=== PATIENT | male | born 1945 | race Caucasian/White ===

== ENCOUNTER 2019-04-22 11:07 | Outpatient (RCR) | payer OTHER ==
--- NOTE | 2019-04-14 13:52 | CARECAPL ---
Assessment Account #s: Initial Assessment General Diagnoses: Stent, AVR Date of event: Feb 19, 2019 Allergies: Coded Allergies: Penicillins (Verified Allergy, Unknown, 04/14/19) lisinopril (Verified Allergy, Unknown, 04/14/19) procaine (Verified Allergy, Unknown, 04/14/19) Risk strat for cardiac event: High Exercise Assessment: Initial Assessment Stages of change: Pre-contemplation Exercise Prescription Plan Educate on cardiovascular disease and increase endurance, strength and flexibility through a monitored exercise program. Modalities initiated: Nustep (will add resistance of one for 8 minutes), Arm Aerometer (will add resistance of 1 for 5 minutes), Dumbells (will add 1lb 1 set for 6-8 reps), Recumbent Bike (will add resistance of 1 for 5 minutes) Frequency: 3 Duration (Minutes) 30 - 60 minutes total exercise a day. 15 - 20 work intervals in minutes. PRN rest intervals in minutes. Functional Capacity Goal Sustained Metabolic Equivalent of a task (MET) goal of 2.0-3.0 for 15-20 minutes. Intensity: 3-Moderate Progression (METS) Increase by: 0.5 METS every: 3-5 sessions Angina with ex: No Target Heart Rate Rest +35-40 per beta brianne therapy. Resistance Training: Yes Weight (pounds): 1 Reps: 6-8 Medications Scheduled Allopurinol (Allopurinol), 1 TAB PO DAILY, (Reported) Amiodarone HCl (Amiodarone HCl), 1 TAB PO DAILY, (Reported) Amlodipine Besylate (Amlodipine Besylate), 10 MG PO DAILY, (Reported) Ascorbic Acid (Vitamin C), 1 CAP PO DAILY, (Reported) Cholecalciferol (Vitamin D3) (Vitamin D3), 1,000 UNIT PO DAILY, (Reported) Clopidogrel Bisulfate (Plavix), 75 MG PO DAILY, (Reported) Escitalopram Oxalate (Escitalopram Oxalate), 10 MG PO DAILY, (Reported) Famotidine (Pepcid), 40 MG PO DAILY, (Reported) Folic Acid (Folic Acid), 1 TAB PO DAILY, (Reported) Gabapentin (Neurontin), 100 MG PO BID, (Reported) Glucosam/Vernon-Msm1/C/Ramon/Bosw (Osteo Bi-Flex Caplet), 1 TAB PO DAILY, (Reported) Metformin HCl (Metformin HCl), 500 MG PO DAILY, (Reported) Metoprolol Succinate (Metoprolol Succinate), 50 MG PO BID, (Reported) Multivitamin (Multi-Vitamin Daily), 1 TAB PO DAILY, (Reported) Potassium Chloride (Potassium Chloride), 8 MEQ PO BID, (Reported) Trazodone HCl (Trazodone HCl), 50 MG PO QPM, (Reported) Warfarin Sodium (Coumadin), 3 MG PO DAILY, (Reported) Miscellaneous Medications Famotidine (Pepcid), 40 MG PO, (Reported) Intervention Education: BP medication Education Goals Met: No Target Goals Individual exercise Rx (1) BP 140/90 or 130/80 if DM or CKD (1) Aerobic active 30+min 5 days per week (1) Nutrition Date: Apr 14, 2019 Assessment: Initial Assessment Stages of change: Pre-contemplation Lipids Total Cholesterol (111), High Density Lipids (HDL) (49), Low Density Lipids (LDL) (46), Triglycerides (79) Lipid- med/supplement None Diabetes Diabetes: Yes HbA1c (%): 5.6 Diabetes medication Metformin Monitor Blood Sugar at home: Yes Frequency Twice a day Weight Management Weight (lbs): 233.2 Height (inches): 66 Waist Circumference (Inches): 51 BMI: 37.6 Special Diet: low salt, low-fat Alcohol: none Diet Access Tool: Rate your plate Score: 40 Referral to Diabetes education: No (will discuss with patient about [facility] programs.) Referral to lipid clinic: No Referral to weight mangement p: No (will discuss with patient about [facility] programs.) Education Goals Met: No Target goal LDL-C<100 if triglycerides are >200 Non-HDL-C should be <130 (1) LDL-C<70 for high risk patients (4) HbA1c<7% (1) BMI<25 Waist cir<40in M/<35in F (1) Education Date: Apr 14, 2019 Assessment: Initial Assessment Knowledge Test Score: 5 Stages of change: Pre-contemplation Family Support: Yes Tobacco use: No Quit: never smoked Education Goals Met: No Target Goals Complete cessation of tobacco use (1). Psychosocial Date: Apr 14, 2019 Assessment: Initial Assessment Psych Test (Initial/Discharge) Tool Used: Other (pHQ-9) Score: 6 Stages of change: Pre-contemplation Intervention Physician Consult: No Physician Referral: No ([facility] Psychotropic medication lexapro and trazodone. Education Goals Met: No Target Goal Assess presence or absence of depression using a valid screening tool (1). Maximize coping skills (2). Positive support system (2). Patient/Program Goal Preventative Medication: Yes Clopidogrel, Yes Beta blockade, Yes Statin/OTR lipid Lowering, Yes Other (amiodarone and Norvasc.) Fall Risk Assess: Yes (patient was not a fall risk but does have issues with loss of balance.) Provider Assessment Provider Assessment: Proceed with rehab Scarlett Stein RN Apr 14, 2019 13:52
[~2019-04-22 11:07] MED LIST: ALLO100T PO; AMIO200T PO; AMLO10TA5 PO; COUM1TAB19 PO; ESCI5SOL3 PO; FOLI1TAB11 PO; METF500T13 PO; METO1TAB7 PO; MULT1TAB8 PO; NEUR100C PO; OSTETAB2 PO; PEPC40TA12 PO; PLAV1TAB2 PO; POTA8CAP10 PO; TRAZ-252 PO; VITA100054 PO; VITA500C24 PO
== END 2019-04-23 ==
LOC: M CR 11:07
PROVIDERS: ATTEND Internal Medicine Cardiovascular Disease
DX: Z95.5 Presence of coronary angioplasty implant and graft (principal)

== ENCOUNTER 2019-05-19 09:36 | Outpatient (RCR) | payer OTHER ==
[2019-05-05 07:35] VITALS: BP 124/80
[2019-05-05 08:10] VITALS: BP 180/110
[2019-05-05 08:53] VITALS: BP 118/80
[2019-05-07 09:03] VITALS: BP 140/86
[2019-05-07 09:08] VITALS: BP_SYST 124; BP_SYST 160; BP_DIAS 82; BP_DIAS 90
[2019-05-10 07:40] VITALS: BP 150/80
[2019-05-10 08:20] VITALS: BP 150/80
[2019-05-10 09:03] VITALS: BP 118/72
--- NOTE | 2019-05-10 14:00 | CARECAPL ---
Assessment Account #s: Re-Assessment I General Diagnoses: Stent, AVR Date of event: Feb 19, 2019 Allergies: Coded Allergies: Penicillins (Verified Allergy, Unknown, 04/14/19) lisinopril (Verified Allergy, Unknown, 04/14/19) procaine (Verified Allergy, Unknown, 04/14/19) Date Entered Program: Apr 16, 2019 Risk strat for cardiac event: High Exercise Assessment: Re-Assessment I Stages of change: Contemplate Exercise Prescription Plan TO EDUCATE AND BUILD ENDURANCE THROUGH MONITORED EXERCISE PROGRAM Modalities initiated: Nustep (METS=7.0/RPE=4), Arm Aerometer (METS=3.5/RPE=3.5), Dumbells (5#/RPE=4), Recumbent Bike (METS=5.3/RPE=4) Frequency: 3 Duration (Minutes) 30 - 60 minutes total exercise a day. 15 - 20 work intervals in minutes. PRN rest intervals in minutes. Functional Capacity Goal Sustained Metabolic Equivalent of a task (MET) goal of 4.75-5.50 for 15-20 minutes. Intensity: 3-Moderate Progression (METS) Increase by: 0.5 METS every: 5 sessions TOLERATED Angina with ex: No Target Heart Rate REST + 35-40 BASED ON BETA BHANU THERAPY Resistance Training: Yes Weight (pounds): 5 Reps: 8-12 Hypertension: Yes Hypertension controlled with: Medication (NORVASC,METOPROLOL) Resting 150/80 Peak Exercise BP 150/80 Medications Scheduled Allopurinol (Allopurinol), 1 TAB PO DAILY, (Reported) Amiodarone HCl (Amiodarone HCl), 1 TAB PO DAILY, (Reported) Amlodipine Besylate (Amlodipine Besylate), 10 MG PO DAILY, (Reported) Ascorbic Acid (Vitamin C), 1 CAP PO DAILY, (Reported) Cholecalciferol (Vitamin D3) (Vitamin D3), 1,000 UNIT PO DAILY, (Reported) Clopidogrel Bisulfate (Plavix), 75 MG PO DAILY, (Reported) Escitalopram Oxalate (Escitalopram Oxalate), 10 MG PO DAILY, (Reported) Famotidine (Pepcid), 40 MG PO DAILY, (Reported) Folic Acid (Folic Acid), 1 TAB PO DAILY, (Reported) Gabapentin (Neurontin), 100 MG PO BID, (Reported) Glucosam/Vernon-Msm1/C/Ramon/Bosw (Osteo Bi-Flex Caplet), 1 TAB PO DAILY, (Reported) Metformin HCl (Metformin HCl), 500 MG PO DAILY, (Reported) Metoprolol Succinate (Metoprolol Succinate), 50 MG PO BID, (Reported) Multivitamin (Multi-Vitamin Daily), 1 TAB PO DAILY, (Reported) Potassium Chloride (Potassium Chloride), 8 MEQ PO BID, (Reported) Trazodone HCl (Trazodone HCl), 50 MG PO QPM, (Reported) Warfarin Sodium (Coumadin), 3 MG PO DAILY, (Reported) Miscellaneous Medications Famotidine (Pepcid), 40 MG PO, (Reported) Current BP 118/72 Med Change: No Intervention Home exercise: Type (WALKING, HAND WEIGHTS, HOME EXERCISE EQUIPMENT, JOIN LOCAL GYM OR MEET PROGRAM AT CARDIAC REHAB), Frequency (3-5 DAYS PER WEEK), Duration (30-60 MINUTES) Resistance Training: Yes Education: Self pulse (INSTRUCTED PATIENT TO TAKE HIS OWN PULSE, REINFORCEMENT WILL BE PROVIDED THROUGHOUT PROGRAM), Ex safety (PATIENT VERBALIZES UNDERSTANDING OF IMPORTANCE OF WARM UP/COOL DOWN, STAYING HYDRATED, COMFORTABLE SHOES AND CLOTHING DURING EXERCISE), S/S to report (PATIENT VERBALIZES UNDERSTANDING TO REPORT CHEST PAIN/PRESSURE, SOB, N/V DURING EXERCISE), Low NA diet (PATIENT VERBALIZES THAT HE IS TO AVOID SALT IN HIS DIET DUE TO HIS CARDIAC DISEASE), BP medication (REVIEWED USES/ACTION OF AMLODIPINE, AND METOPROLOL), RPE Scale (REVIEWED RPE SCALE OF DIFFICULTY FOR EACH PIECE OF EQUIPMENT USED), Equipment orientation (ORIENTED TO EACH PIECE OF EQUIPMENT), warm up/cool down (INSTRUCTED WARM UP AND COOL DOWN PRIOR TO AND FOLLOWING EXERCISE), Understand BP (REVIEWED IDEAL B/P OF 130/80 WITH PATIENT ), Physical Active (PATIENT STATES UNDERSTANDING OF IMPORTANCE OF CONTINUED EXERCISE FOLLOWING CARDIAC REHAB PROGRAM) Education Goals Met: No (PROGRESSING TOWARD GOALS) Target Goals Individual exercise Rx (1) BP 140/90 or 130/80 if DM or CKD (1) Aerobic active 30+min 5 days per week (1) Nutrition Date: May 10, 2019 Assessment: Re-Assessment I Stages of change: Contemplate Med Change: No Diabetes Diabetes: Yes Monitor Blood Sugar at home: Yes Frequency ACHS Medication Change: No Blood sugar in range: Yes Weight Management Weight (lbs): 230 Special Diet: low salt, low-fat Vitamin/Supplements: Multivitamin, Vitamin C, Vitamin D Current Weight (pounds): 230 Intervention Division Superintendent Consult: No Nurse/patient discussion: Yes Dietary Goals TO MAKE HEART HEALTHY CHOICES, SMALLER PORTIONS Diet Class: Yes (MET WITH CYCLE ANALYST 04/22/19) Referral to Diabetes education: No Referral to lipid clinic: No Referral to weight mangement p: No Education Eating Healthy Education Goals Met: No (PROGRESSING TOWARD GOALS) Target goal LDL-C<100 if triglycerides are >200 Non-HDL-C should be <130 (1) LDL-C<70 for high risk patients (4) HbA1c<7% (1) BMI<25 Waist cir<40in M/<35in F (1) Education Date: May 10, 2019 Assessment: Re-Assessment I Learning Barriers: ready Stages of change: Contemplate Family Support: Yes Tobacco use: No Tobacco Use Smokeless tobacco: No Intervention Referral to smoking cessation: No Individual education and couns: No Tobacco Adjunct: No Education class schedule given: No Attended education classes: No Education: CAD (PATIENT STATES THAT HIGH CHOLESTEROL CLOGS ARTERIES CAUSING CAD), Risk factors (PATIENT IS AWARE THAT BEING OVER WEIGHT, DIABETIC, AND HAVING ELEVATED CHOLESTEROL ARE RISK FACTORS FOR CAD), med compliance (PATIENT VERBALIZES UNDERSTANDING OF THE IMPORTANCE OF COMPLIANCE WITH HIS MEDICATIONS), cardiac A&P (HANDOUTS GIVEN/REVIEWED FOR ANATOMY OF HEART), Angina S/S (REVIEWED S/S OF ANGINA SUCH CHEST PAIN, PRESSURE, SOB, N/V) Education Goals Met: No (PROGRESSING TOWARD GOALS) Target Goals Complete cessation of tobacco use (1). Psychosocial Date: May 10, 2019 Assessment: Re-Assessment I Stages of change: Contemplate Intervention Physician Consult: No Physician Referral: No Med Change: No Stress Management Class: No Uses Stress Management Skills: Yes Education Education: Coping Techniques (REVIEWED TAKING TIME FOR SELF, AND TALKING WITH FRIENDS AND FAMILY), S/S depression (REVIEWED S/S DEPRESSION SUCH WITHDRAWAL, LACK OF APPETITE, LACK OF INTEREST), Relaxation Techniques (DISCUSSED WAYS TO RELAX SUCH EXERCISING, MUSIC, READING) Education Goals Met: No (PROGRESSING TOWARD GOALS) Target Goal Assess presence or absence of depression using a valid screening tool (1). Maximize coping skills (2). Positive support system (2). Patient/Program Goal Preventative Medication: Yes Clopidogrel, Yes Beta blockade, Yes Statin/OTR lipid Lowering Fall Risk Assess: Yes (NOT A FALL RISK) Provider Assessment Session Number: 11 Provider Assessment: Proceed with rehab Samy Kim RN May 10, 2019 14:00
[2019-05-12 07:35] VITALS: BP 142/96
[2019-05-12 08:10] VITALS: BP 152/82
[2019-05-12 09:05] VITALS: BP 132/90
[2019-05-14 07:35] VITALS: BP 148/81
[2019-05-14 08:57] VITALS: BP_SYST 114; BP_SYST 154; BP_DIAS 76; BP_DIAS 80
[2019-05-17 07:40] VITALS: BP 132/70
[2019-05-17 09:41] VITALS: BP_SYST 130; BP_SYST 190; BP_DIAS 100; BP_DIAS 80
[~2019-05-19] VITALS: Ht 167.6 cm; Wt 104.5 kg
[2019-05-19 08:00] VITALS: BP_SYST 118; BP_SYST 152; BP_SYST 200; BP_DIAS 100; BP_DIAS 70; BP_DIAS 80
== END 2019-05-22 ==
LOC: M CR 09:36
PROVIDERS: ATTEND Internal Medicine Cardiovascular Disease
DX: Z95.5 Presence of coronary angioplasty implant and graft (principal)

== ENCOUNTER 2019-05-24 08:45 | Outpatient (RCR) | payer OTHER ==
[~2019-05-24] VITALS: Ht 167.6 cm; Wt 107.7 kg
[2019-05-24 09:08] VITALS: BP 132/80
[2019-05-24 09:47] VITALS: BP 166/90
[2019-05-24 09:48] VITALS: BP 148/82
[2019-05-26] MEDS ORDERED: PROTPAK PO (07:29)
[2019-05-26 07:35] VITALS: BP 124/82
[2019-05-26 08:30] VITALS: BP 176/84
[2019-05-26 09:13] VITALS: BP 118/80
[2019-05-28 07:36] VITALS: BP 142/80
[2019-05-28 08:20] VITALS: BP 200/100
[2019-05-28 08:57] VITALS: BP 118/78
[2019-05-31 07:36] VITALS: BP 138/78
[2019-05-31 08:10] VITALS: BP 154/82
[2019-05-31 08:57] VITALS: BP 126/72
--- NOTE | 2019-05-31 14:49 | CARECAPL ---
Assessment Account #s: Re-Assessment II General Diagnoses: Stent, AVR Date of event: Feb 19, 2019 Physician: Dio Fernandez Allergies: Coded Allergies: Penicillins (Verified Allergy, Unknown, 04/14/19) lisinopril (Verified Allergy, Unknown, 04/14/19) procaine (Verified Allergy, Unknown, 04/14/19) Date Entered Program: Apr 16, 2019 Risk strat for cardiac event: High Exercise Date: May 31, 2019 Assessment: Re-Assessment II Stages of change: Preperation Exercise Prescription Modalities initiated: Nustep (L8 15 MINUTES MTS 3.6 RPE 3), Arm Aerometer (4.5 10 MINUTES MTS 4.2 RPE 3), Dumbells, Recumbent Bike (R4 10 MINUTES MTS 6.0 RPE 3) Duration (Minutes) 30 - 60 minutes total exercise a day. 15 - 20 work intervals in minutes. PRN rest intervals in minutes. Functional Capacity Goal Sustained Metabolic Equivalent of a task (MET) goal of 5-5.5 for 15 minutes. Progression (METS) Increase by: METS every: sessions Angina with ex: No Resistance Training: Yes Weight (pounds): 5 Hypertension: Yes Resting 138/78 Peak Exercise BP 154/82 Medications Scheduled Allopurinol (Allopurinol), 1 TAB PO DAILY, (Reported) Amiodarone HCl (Amiodarone HCl), 1 TAB PO DAILY, (Reported) Amlodipine Besylate (Amlodipine Besylate), 10 MG PO DAILY, (Reported) Ascorbic Acid (Vitamin C), 1 CAP PO DAILY, (Reported) Cholecalciferol (Vitamin D3) (Vitamin D3), 1,000 UNIT PO DAILY, (Reported) Clopidogrel Bisulfate (Plavix), 75 MG PO DAILY, (Reported) Escitalopram Oxalate (Escitalopram Oxalate), 10 MG PO DAILY, (Reported) Famotidine (Pepcid), 40 MG PO DAILY, (Reported) Folic Acid (Folic Acid), 1 TAB PO DAILY, (Reported) Gabapentin (Neurontin), 100 MG PO BID, (Reported) Glucosam/Vernon-Msm1/C/Ramon/Bosw (Osteo Bi-Flex Caplet), 1 TAB PO DAILY, (Reported) Metformin HCl (Metformin HCl), 500 MG PO DAILY, (Reported) Metoprolol Succinate (Metoprolol Succinate), 50 MG PO BID, (Reported) Multivitamin (Multi-Vitamin Daily), 1 TAB PO DAILY, (Reported) Pantoprazole Sodium (Protonix), 40 MG PO DAILY, (Reported) Potassium Chloride (Potassium Chloride), 8 MEQ PO BID, (Reported) Trazodone HCl (Trazodone HCl), 50 MG PO QPM, (Reported) Warfarin Sodium (Coumadin), 3 MG PO DAILY, (Reported) Discontinued Medications Famotidine (Pepcid), 40 MG PO, (Reported) Discontinued Reason: Pt states not taking Current BP 126/72 Med Change: No Education Goals Met: No (PROGRESSING TOWARD GOALS) Target Goals Individual exercise Rx (1) BP 140/90 or 130/80 if DM or CKD (1) Aerobic active 30+min 5 days per week (1) Nutrition Date: May 31, 2019 Assessment: Re-Assessment II Stages of change: Contemplate Current Weight (pounds): 237 Intervention Nurse/patient discussion: Yes Diet Class: Yes Referral to weight mangement p: Yes (OPTIONS IN COMMUNITY GIVEN) Education Goals Met: No (PROGRESSING TOWARD GOALS) Target goal LDL-C<100 if triglycerides are >200 Non-HDL-C should be <130 (1) LDL-C<70 for high risk patients (4) HbA1c<7% (1) BMI<25 Waist cir<40in M/<35in F (1) Education Date: May 31, 2019 Assessment: Re-Assessment II Intervention Attended education classes: Yes Education Goals Met: Yes (VERY RECEPTIVE TO EDUCATION. WORKS HARD AND HAD A GOOD ATTITUDE TOWARD EXERCISE) Target Goals Complete cessation of tobacco use (1). Psychosocial Date: May 31, 2019 Assessment: Re-Assessment II Education Goals Met: Yes Target Goal Assess presence or absence of depression using a valid screening tool (1). Maximize coping skills (2). Positive support system (2). Provider Assessment Session Number: [id number] Provider Assessment: No changes (EXCELLENT ATTENDANCE) Lisa Hernandez RN May 31, 2019 14:49
[2019-06-02 09:04] VITALS: BP_SYST 104; BP_SYST 120; BP_SYST 210; BP_DIAS 60; BP_DIAS 88
[2019-06-04 07:38] VITALS: BP 142/82
[2019-06-04 08:10] VITALS: BP 190/80
[2019-06-04 09:01] VITALS: BP 142/80
[2019-06-07 07:45] VITALS: BP 148/84
[2019-06-07 08:30] VITALS: BP 172/96
[2019-06-07 09:06] VITALS: BP 118/76
[2019-06-09 07:47] VITALS: BP 128/80
[2019-06-09 08:36] VITALS: BP 196/100
[2019-06-09 09:14] VITALS: BP 112/72
--- NOTE | 2019-06-11 13:34 | CARECAPL ---
General Allergies: Coded Allergies: Penicillins (Verified Allergy, Unknown, 04/14/19) lisinopril (Verified Allergy, Unknown, 04/14/19) procaine (Verified Allergy, Unknown, 04/14/19) Exercise Prescription Duration (Minutes) 30 - 60 minutes total exercise a day. 15 - 20 work intervals in minutes. PRN rest intervals in minutes. Functional Capacity Goal Sustained Metabolic Equivalent of a task (MET) goal of for minutes. Progression (METS) Increase by: METS every: sessions Medications Scheduled Allopurinol (Allopurinol), 1 TAB PO DAILY, (Reported) Amiodarone HCl (Amiodarone HCl), 1 TAB PO DAILY, (Reported) Amlodipine Besylate (Amlodipine Besylate), 10 MG PO DAILY, (Reported) Ascorbic Acid (Vitamin C), 1 CAP PO DAILY, (Reported) Cholecalciferol (Vitamin D3) (Vitamin D3), 1,000 UNIT PO DAILY, (Reported) Clopidogrel Bisulfate (Plavix), 75 MG PO DAILY, (Reported) Escitalopram Oxalate (Escitalopram Oxalate), 10 MG PO DAILY, (Reported) Famotidine (Pepcid), 40 MG PO DAILY, (Reported) Folic Acid (Folic Acid), 1 TAB PO DAILY, (Reported) Gabapentin (Neurontin), 100 MG PO BID, (Reported) Glucosam/Vernon-Msm1/C/Raomn/Bosw (Osteo Bi-Flex Caplet), 1 TAB PO DAILY, (Reported) Metformin HCl (Metformin HCl), 500 MG PO DAILY, (Reported) Metoprolol Succinate (Metoprolol Succinate), 50 MG PO BID, (Reported) Multivitamin (Multi-Vitamin Daily), 1 TAB PO DAILY, (Reported) Pantoprazole Sodium (Protonix), 40 MG PO DAILY, (Reported) Potassium Chloride (Potassium Chloride), 8 MEQ PO BID, (Reported) Trazodone HCl (Trazodone HCl), 50 MG PO QPM, (Reported) Warfarin Sodium (Coumadin), 3 MG PO DAILY, (Reported) Target Goals Individual exercise Rx (1) BP 140/90 or 130/80 if DM or CKD (1) Aerobic active 30+min 5 days per week (1) Target goal LDL-C<100 if triglycerides are >200 Non-HDL-C should be <130 (1) LDL-C<70 for high risk patients (4) HbA1c<7% (1) BMI<25 Waist cir<40in M/<35in F (1) Target Goals Complete cessation of tobacco use (1). Target Goal Assess presence or absence of depression using a valid screening tool (1). Maximize coping skills (2). Positive support system (2). Provider Assessment Provider Assessment: No changes (Cardiac Rehab Program closed due to COVID-19, patient's account to be put on hold) Samy Kim RN Jun 11, 2019 13:34
== END 2019-06-22 ==
LOC: M CR 08:45
PROVIDERS: ATTEND Internal Medicine Cardiovascular Disease
DX: Z95.2 Presence of prosthetic heart valve (principal)

== ENCOUNTER 2021-03-25 10:11 | Inpatient (IN) | payer MEDICARE, OTHER ==
[~2021-03-25] VITALS: Ht 167.6 cm; Wt 123.0 kg
[~2021-03-25 10:11] MED LIST changes: -AMIO200T PO; +AMIO200T3 PO; -AMLO10TA5 PO; +AMLO1TAB25 PO; +PROTPAK PO
[2021-03-25] MEDS ORDERED: ONDANSETRON 4MG/2ML VIAL IV ONE (10:20)
[2021-03-25] MEDS ORDERED: ISOVUE-370 76% 100ML VIAL As Ordered ONE (10:28)
[2021-03-25 10:40] LABS: BASO # 0.1 10^3/uL (0.0-0.2); BASO % 0.7 % (0.0-1.0); EOS # 0.1 10^3/uL (0.0-0.5); EOS % 0.4 % (0.0-3.0); HEMATOCRIT 41.3 % (42.0-52.0); HEMOGLOBIN 12.9 g/dl (13.5-17.5); LYMPH # 1.1 10^3/uL (1.5-5.0); LYMPH % 5.8 % (24.0-44.0); MEAN CORPUSCULAR HEMOGLOBIN 26.8 pg (27.0-33.0); MEAN CORPUSCULAR HGB CONC 31.2 g/dl (32.0-36.5); MEAN CORPUSCULAR VOLUME 85.7 fl (80.0-96.0); MONO # 1.5 10^3/uL (0.0-0.8); MONO % 8.2 % (2.0-8.0); NEUTROPHILS # 15.8 10^3/uL (1.5-8.5); NEUTROPHILS % 84.3 % (36.0-66.0); PLATELET COUNT, AUTOMATED 201 10^3/uL (150-450); RED BLOOD COUNT 4.82 10^6/uL (4.30-6.10); WHITE BLOOD COUNT 18.8 10^3/uL (4.0-10.0)
[2021-03-25] MEDS: MORPHINE 2 MG/ML 1ML VIAL (J2270) IV PRN ×2 (11:08→11:57)
[2021-03-25 11:11] LABS: ALBUMIN 3.6 GM/DL (3.2-5.2); BILIRUBIN,DIRECT 0.2 MG/DL (0.0-0.2); BILIRUBIN,TOTAL 0.6 MG/DL (0.2-1.0); TOTAL PROTEIN 6.5 GM/DL (6.4-8.2)
[2021-03-25 11:23] LABS: INR 1.15; PROTHROMBIN TIME 15.1 SECONDS (12.7-14.5)
[2021-03-25 12:30] LABS: RSV AMPLIFICATION NEGATIVE (NEGATIVE)
[2021-03-25] MEDS ORDERED: GLUCOSE 4GM CHEW TABLET PO PRN (12:35)
[2021-03-25] MEDS ORDERED: MORPHINE 4 MG/ML 1ML VIAL/SYRINGE (J2270) IV PRN (12:35)
[2021-03-25] MEDS ORDERED: MOM 30ML SUSPENSION UDC PO PRN (12:35)
[2021-03-25] MEDS ORDERED: GLUCAGON INJ 1MG VIAL SC PRN (12:35)
[2021-03-25] MEDS ORDERED: DEXTROSE 50% 50 ML SYRINGE IV PRN (12:35)
[2021-03-25] MEDS ORDERED: D3 H10002 PO (13:34)
[2021-03-25] MEDS ORDERED: CIAL5TAB PO (13:39)
[2021-03-25] MEDS ORDERED: PRAZ2CAP PO (13:39)
[2021-03-25] MEDS ORDERED: LEXA1TAB PO (13:39)
[2021-03-25] MEDS ORDERED: ATOR40TA75 PO (13:39)
[2021-03-25] MEDS ORDERED: HOME MED LIST COMPLETE! XX SCH (13:40)
[2021-03-25 14:50] VITALS: BP 137/76
[2021-03-25 15:40] LABS: CALCIUM LEVEL 8.5 MG/DL (8.8-10.2); CREATININE FOR GFR 1.63 MG/DL (0.70-1.30); GLOMERULAR FILTRATION RATE 44.1 (>42); POTASSIUM SERUM 4.7 MEQ/L (3.5-5.1)
[2021-03-25 16:00] VITALS: BP 136/76
[2021-03-25] MEDS: HumaLOG INSULIN (NovoLOG) PER UNIT SC SCH ×2 (17:30→20:11)
[2021-03-25] MEDS: NS 1,000 ML IV SCH ×2 (18:17→20:12)
[2021-03-25] MEDS ORDERED: NS 500 ML IV ONE (19:00)
[2021-03-25 20:00] VITALS: BP 119/60
[2021-03-25] MEDS: DOCUSATE SODIUM 100MG CAPSULE PO SCH (20:10)
[2021-03-26] VITALS: BP 117/56
[2021-03-26] MEDS: ACETAMINOPHEN TAB 650MG DOSE (2X325MG) PO PRN ×2 (00:03→05:27)
[2021-03-26 04:00] VITALS: BP 150/81
[2021-03-26 05:43] LABS: BASO # 0.1 10^3/uL (0.0-0.2); BASO % 0.7 % (0.0-1.0); EOS # 0.1 10^3/uL (0.0-0.5); EOS % 1.3 % (0.0-3.0); HEMATOCRIT 36.4 % (42.0-52.0); HEMOGLOBIN 11.4 g/dl (13.5-17.5); LYMPH # 1.1 10^3/uL (1.5-5.0); LYMPH % 9.9 % (24.0-44.0); MEAN CORPUSCULAR HGB CONC 31.3 g/dl (32.0-36.5); MEAN CORPUSCULAR VOLUME 86.3 fl (80.0-96.0); MONO # 1.4 10^3/uL (0.0-0.8); MONO % 12.2 % (2.0-8.0); NEUTROPHILS # 8.4 10^3/uL (1.5-8.5); NEUTROPHILS % 75.6 % (36.0-66.0); PLATELET COUNT, AUTOMATED 169 10^3/uL (150-450); RED BLOOD COUNT 4.22 10^6/uL (4.30-6.10); WHITE BLOOD COUNT 11.1 10^3/uL (4.0-10.0)
[2021-03-26 06:18] LABS: ALBUMIN 3.3 GM/DL (3.2-5.2); BILIRUBIN,TOTAL 0.6 MG/DL (0.2-1.0); CREATININE FOR GFR 1.38 MG/DL (0.70-1.30); GLOMERULAR FILTRATION RATE 53.5 (>42); MAGNESIUM LEVEL 2.1 MG/DL (1.8-2.4); POTASSIUM SERUM 4.2 MEQ/L (3.5-5.1); TOTAL PROTEIN 5.8 GM/DL (6.4-8.2)
[2021-03-26] MEDS: HumaLOG INSULIN (NovoLOG) PER UNIT SC SCH ×4 (07:30→20:20)
[2021-03-26 08:00] VITALS: BP 154/85
[2021-03-26] MEDS ORDERED: IPRATROPIUM 0.5MG/ALBUTEROL 2.5MG INH SOL UD 3ML (DUONEB) NEB PRN (08:10)
[2021-03-26] MEDS: DOCUSATE SODIUM 100MG CAPSULE PO SCH ×2 (08:33→20:07)
[2021-03-26] MEDS: PRAZOSIN 1 MG CAP PO SCH ×2 (09:00→20:07)
[2021-03-26] MEDS ORDERED: KETOROLAC 30 MG/ML 1ML VIAL IV SCH (09:00)
[2021-03-26] MEDS: IPRATROPIUM 0.5MG/ALBUTEROL 2.5MG INH SOL UD 3ML (DUONEB) NEB SCH ×3 (09:04→19:28)
[2021-03-26] MEDS: APIXABAN 5 MG TAB (ELIQUIS) PO SCH ×2 (11:44→20:09)
[2021-03-26] MEDS: FAMOTIDINE 20 MG TAB PO SCH (11:44)
[2021-03-26] MEDS: ESCITALOPRAM OXALATE 10 MG TAB (LEXAPRO) PO SCH ×2 (11:44→20:09)
[2021-03-26] MEDS: allopurinoL 100 MG TAB PO SCH (11:44)
[2021-03-26] MEDS: VITAMIN D 1,000 INTERNATIONAL UNITS TABLET PO SCH (11:45)
[2021-03-26] MEDS: GABAPENTIN 100 MG CAP PO SCH ×2 (11:45→20:09)
[2021-03-26] MEDS: METOPROLOL TART 25 MG TABLET PO SCH ×2 (11:45→20:08)
[2021-03-26 12:29] VITALS: BP 164/84
[2021-03-26] MEDS ORDERED: PERCOCET PO (13:47)
[2021-03-26] MEDS ORDERED: METO1TAB87 PO (13:47)
[2021-03-26] MEDS ORDERED: ELIQ5TAB PO (13:47)
[2021-03-26] MEDS ORDERED: HEPARIN SOD (PORCINE) 5000UNITS/ML 1ML VIAL/SYRINGE SQ SCH (14:00)
[2021-03-26 16:00] VITALS: BP 164/82
[2021-03-26 20:00] VITALS: BP 176/84
[2021-03-26] MEDS: PERCOCET 5MG/325MG TAB PO PRN (20:08)
[2021-03-26] MEDS: ATORVASTATIN 20 MG TAB PO SCH (20:09)
[2021-03-27] VITALS: BP 144/76
[2021-03-27] MEDS: ACETAMINOPHEN TAB 650MG DOSE (2X325MG) PO PRN (00:23)
[2021-03-27] MEDS: IPRATROPIUM 0.5MG/ALBUTEROL 2.5MG INH SOL UD 3ML (DUONEB) NEB SCH ×4 (02:58→19:23)
[2021-03-27 04:00] VITALS: BP 148/87
[2021-03-27 06:07] LABS: BASO # 0.1 10^3/uL (0.0-0.2); BASO % 0.9 % (0.0-1.0); EOS # 0.4 10^3/uL (0.0-0.5); EOS % 3.5 % (0.0-3.0); HEMATOCRIT 37.5 % (42.0-52.0); HEMOGLOBIN 11.6 g/dl (13.5-17.5); LYMPH # 1.2 10^3/uL (1.5-5.0); MEAN CORPUSCULAR HEMOGLOBIN 26.9 pg (27.0-33.0); MEAN CORPUSCULAR HGB CONC 30.9 g/dl (32.0-36.5); MONO # 1.4 10^3/uL (0.0-0.8); MONO % 12.6 % (2.0-8.0); NEUTROPHILS % 71.6 % (36.0-66.0); PLATELET COUNT, AUTOMATED 159 10^3/uL (150-450); RED BLOOD COUNT 4.31 10^6/uL (4.30-6.10); WHITE BLOOD COUNT 11.1 10^3/uL (4.0-10.0)
[2021-03-27 06:35] LABS: ALBUMIN 3.1 GM/DL (3.2-5.2); ALT/SGPT 26 U/L (12-78); BILIRUBIN,TOTAL 0.6 MG/DL (0.2-1.0); BLOOD UREA NITROGEN 28 MG/DL (7-18); CALCIUM LEVEL 8.3 MG/DL (8.8-10.2); CARBON DIOXIDE LEVEL 27 MEQ/L (21-32); CHLORIDE LEVEL 109 MEQ/L (98-107); CREATININE FOR GFR 1.16 MG/DL (0.70-1.30); GLOMERULAR FILTRATION RATE > 60.0 (>42); GLUCOSE, FASTING 105 MG/DL (70-100); POTASSIUM SERUM 4.3 MEQ/L (3.5-5.1); SODIUM LEVEL 142 MEQ/L (136-145); TOTAL PROTEIN 6.5 GM/DL (6.4-8.2)
[2021-03-27] MEDS: HumaLOG INSULIN (NovoLOG) PER UNIT SC SCH ×4 (07:30→20:38)
[2021-03-27 07:43] VITALS: BP 156/88
[2021-03-27] MEDS: PRAZOSIN 1 MG CAP PO SCH ×2 (08:14→20:21)
[2021-03-27] MEDS: PERCOCET 5MG/325MG TAB PO PRN ×3 (08:14→18:22)
[2021-03-27] MEDS: DOCUSATE SODIUM 100MG CAPSULE PO SCH ×2 (08:15→20:20)
[2021-03-27] MEDS: FAMOTIDINE 20 MG TAB PO SCH (08:15)
[2021-03-27] MEDS: GABAPENTIN 100 MG CAP PO SCH ×2 (08:15→20:21)
[2021-03-27] MEDS: VITAMIN D 1,000 INTERNATIONAL UNITS TABLET PO SCH (08:15)
[2021-03-27] MEDS: allopurinoL 100 MG TAB PO SCH (08:15)
[2021-03-27] MEDS: ESCITALOPRAM OXALATE 10 MG TAB (LEXAPRO) PO SCH ×2 (08:16→20:21)
[2021-03-27] MEDS: APIXABAN 5 MG TAB (ELIQUIS) PO SCH ×2 (08:16→20:21)
[2021-03-27] MEDS: METOPROLOL TART 25 MG TABLET PO SCH ×2 (08:16→20:21)
[2021-03-27] MEDS ORDERED: PERCOCET 5MG/325MG TAB PO PRN (12:00)
[2021-03-27 12:17] VITALS: BP 148/81
[2021-03-27 14:22] VITALS: BP 137/69
[2021-03-27 20:00] VITALS: BP 155/70
[2021-03-27] MEDS: ATORVASTATIN 20 MG TAB PO SCH (20:21)
[2021-03-28] MEDS: PERCOCET 5MG/325MG TAB PO PRN ×2 (00:12→08:56)
[2021-03-28] MEDS: IPRATROPIUM 0.5MG/ALBUTEROL 2.5MG INH SOL UD 3ML (DUONEB) NEB SCH ×2 (02:47→07:18)
[2021-03-28 04:00] VITALS: BP 121/75
[2021-03-28 05:45] LABS: BASO # 0.1 10^3/uL (0.0-0.2); BASO % 0.5 % (0.0-1.0); EOS # 0.3 10^3/uL (0.0-0.5); EOS % 2.4 % (0.0-3.0); HEMATOCRIT 38.6 % (42.0-52.0); LYMPH # 0.7 10^3/uL (1.5-5.0); LYMPH % 5.8 % (24.0-44.0); MEAN CORPUSCULAR HEMOGLOBIN 26.8 pg (27.0-33.0); MEAN CORPUSCULAR HGB CONC 31.1 g/dl (32.0-36.5); MEAN CORPUSCULAR VOLUME 86.4 fl (80.0-96.0); MONO # 1.5 10^3/uL (0.0-0.8); MONO % 11.5 % (2.0-8.0); NEUTROPHILS % 79.4 % (36.0-66.0); PLATELET COUNT, AUTOMATED 177 10^3/uL (150-450); RED BLOOD COUNT 4.47 10^6/uL (4.30-6.10); WHITE BLOOD COUNT 12.6 10^3/uL (4.0-10.0)
[2021-03-28 06:13] LABS: CALCIUM LEVEL 8.6 MG/DL (8.8-10.2); CREATININE FOR GFR 1.25 MG/DL (0.70-1.30); GLOMERULAR FILTRATION RATE 59.9 (>42); MAGNESIUM LEVEL 2.1 MG/DL (1.8-2.4); POTASSIUM SERUM 4.2 MEQ/L (3.5-5.1); TOTAL PROTEIN 6.8 GM/DL (6.4-8.2)
[2021-03-28] MEDS: HumaLOG INSULIN (NovoLOG) PER UNIT SC SCH (07:30)
[2021-03-28 08:00] VITALS: BP 136/68
[2021-03-28] MEDS: FAMOTIDINE 20 MG TAB PO SCH (08:55)
[2021-03-28] MEDS: GABAPENTIN 100 MG CAP PO SCH (08:55)
[2021-03-28] MEDS: DOCUSATE SODIUM 100MG CAPSULE PO SCH (08:55)
[2021-03-28 08:56] VITALS: BP 136/68
[2021-03-28] MEDS: PRAZOSIN 1 MG CAP PO SCH (08:56)
[2021-03-28] MEDS: VITAMIN D 1,000 INTERNATIONAL UNITS TABLET PO SCH (08:56)
[2021-03-28] MEDS: METOPROLOL TART 25 MG TABLET PO SCH (08:56)
[2021-03-28] MEDS: allopurinoL 100 MG TAB PO SCH (08:56)
[2021-03-28] MEDS: APIXABAN 5 MG TAB (ELIQUIS) PO SCH (08:57)
[2021-03-28] MEDS: ESCITALOPRAM OXALATE 10 MG TAB (LEXAPRO) PO SCH (08:57)
[2021-03-28] MEDS ORDERED: PERCOCET PO (10:25)
[2021-03-28] MEDS ORDERED: ELIQ5TAB PO (10:28)
[2021-03-28] MEDS ORDERED: METO1TAB87 PO (10:28)
== END 2021-03-28 12:59 | disposition home or self-care (01) | DRG 184 ==
LOC: M ED 10:11 → EDBD 10:11 → M ED INP 12:31 → ENRESERV 13:26 → M PCU 14:44
PROVIDERS: ADMIT Internal Medicine; ATTEND Internal Medicine
DX: S22.41XA Multiple fractures of ribs, right side, initial encounter for closed fracture (principal); E87.2 Acidosis; I25.10 Atherosclerotic heart disease of native coronary artery without angina pectoris; Z95.5 Presence of coronary angioplasty implant and graft; I48.0 Paroxysmal atrial fibrillation; Z79.01 Long term (current) use of anticoagulants; G47.33 Obstructive sleep apnea (adult) (pediatric); Z91.19 Patient's noncompliance with other medical treatment and regimen; I12.9 Hypertensive chronic kidney disease with stage 1 through stage 4 chronic kidney disease, or unspecified chronic kidney disease; E78.5 Hyperlipidemia, unspecified; E11.22 Type 2 diabetes mellitus with diabetic chronic kidney disease; N18.30 Chronic kidney disease, stage 3 unspecified; N40.0 Benign prostatic hyperplasia without lower urinary tract symptoms; E11.42 Type 2 diabetes mellitus with diabetic polyneuropathy; E55.9 Vitamin D deficiency, unspecified; M19.90 Unspecified osteoarthritis, unspecified site; K21.9 Gastro-esophageal reflux disease without esophagitis; Z95.3 Presence of xenogenic heart valve; F32.A Depression, unspecified; W10.8XXA Fall (on) (from) other stairs and steps, initial encounter; Y92.009 Unspecified place in unspecified non-institutional (private) residence as the place of occurrence of the external cause; D64.9 Anemia, unspecified; Z20.822 Contact with and (suspected) exposure to COVID-19; Z79.84 Long term (current) use of oral hypoglycemic drugs; Z79.899 Other long term (current) drug therapy; Z88.0 Allergy status to penicillin; Z88.5 Allergy status to narcotic agent; Z88.8 Allergy status to other drugs, medicaments and biological substances

== ENCOUNTER → 2021-06-21 | Outpatient (RCR) | payer MEDICARE, OTHER ==
[~2021-06-21] MED LIST changes: -AMIO200T3 PO; +AMIO200T49 PO; +ATOR40TA75 PO; +CIAL5TAB PO; +D3 H10002 PO; +ELIQ5TAB PO; +LEXA1TAB PO; +METO1TAB87 PO; +PERCOCET PO; +PRAZ2CAP PO
== END ==
LOC: M PT 06-14 10:21
PROVIDERS: ATTEND Internal Medicine
DX: G93.5 Compression of brain (principal)

== ENCOUNTER 2021-07-19 10:45 | Outpatient (RCR) | payer OTHER | END 2021-07-21 | LOC: M PT 10:45 | PROVIDERS: ATTEND Internal Medicine | DX: G93.5 Compression of brain (principal) ==

== ENCOUNTER 2021-07-26 13:43 | Outpatient (RCR) | payer OTHER | END 2021-08-21 | LOC: M PT 13:43 | PROVIDERS: ATTEND Internal Medicine | DX: G93.5 Compression of brain (principal) ==